=== PATIENT | female | born 1980 | race Caucasian/White ===

== ENCOUNTER 2021-05-19 08:41 | Day surgery (SDC) | payer MEDICARE ==
[2021-05-19] MEDS ORDERED: Depo-Medrol 40 MG/ML IM ONE (08:42)
[2021-05-19] MEDS ORDERED: Marcaine Mpf 0.5% Vial 30 Ml IJ ONE (08:42)
[2021-05-19] MEDS ORDERED: DIPRIVAN 200 MG/20 ML IV ONE (10:24)
[2021-05-19] MEDS ORDERED: Lactated Ringers 1,000 ML IV ONE (10:31)
--- NOTE | 2021-05-19 17:10 | XRAY ---
9 seconds of fluoroscopy was used in surgery for an intra-articular injection of the left shoulder.
--- NOTE | 2021-05-21 09:17 | XRAY ---
Indication: Left shoulder intra-articular injection. Intraoperative fluoroscopy was provided for 9 seconds. A single digital spot image submitted for interpretation demonstrates the needle tip projected over the upper medial aspect of the left humeral head. Some contrast has been injected for needle tip placement. Correlate with intraoperative findings/report.
== END 2021-05-19 10:51 | disposition home or self-care (01) ==
LOC: SDC-PAIN 08:41
PROVIDERS: ATTEND Psychiatry & Neurology Pain Medicine
DX: M19.012 Primary osteoarthritis, left shoulder (principal); M75.22 Bicipital tendinitis, left shoulder; Z79.899 Other long term (current) drug therapy
CPT/HCPCS: 20550; 20610; 73030; 77002; 82947; J1030; J2704; Q9966

== ENCOUNTER 2021-06-23 07:55 | Day surgery (SDC) | payer MEDICARE ==
[2021-06-23] MEDS ORDERED: Depo-Medrol 40 MG/ML IM ONE (07:56)
[2021-06-23] MEDS ORDERED: LIDOCAINE HCL 2% 100 MG/5 ML IJ ONE (07:56)
[2021-06-23] MEDS ORDERED: DIPRIVAN 200 MG/20 ML IV ONE (08:55)
[2021-06-23] MEDS ORDERED: Lactated Ringers 1,000 ML IV ONE (16:10)
--- NOTE | 2021-06-24 11:29 | XRAY ---
24 seconds fluoroscopy time in surgery for right T9-T12 MBB.
--- NOTE | 2021-06-26 22:29 | XRAY ---
Indication: Right T9-T12 MBB. Intraoperative fluoroscopy was provided for 24 seconds. A single digital spot image submitted for interpretation demonstrates posterior needle tips projected over the expected course of the right T9-T12 nerve roots. Correlate with intraoperative findings/report.
== END 2021-06-23 09:21 | disposition home or self-care (01) ==
LOC: SDC-PAIN 07:55
PROVIDERS: ATTEND Psychiatry & Neurology Pain Medicine
DX: M47.814 Spondylosis without myelopathy or radiculopathy, thoracic region (principal); E11.9 Type 2 diabetes mellitus without complications; Z79.899 Other long term (current) drug therapy
CPT/HCPCS: 64490; 64491; 64492; 72020; 77002; 82947; J1030; J2704

== ENCOUNTER 2021-09-29 08:53 | Day surgery (SDC) | payer MEDICARE ==
[2021-09-29] MEDS ORDERED: BUPIVACAINE 0.5% VIAL IJ ONE (08:54)
[2021-09-29] MEDS ORDERED: DIPRIVAN 200 MG/20 ML IV ONE (10:19)
[2021-09-29] MEDS ORDERED: Lactated Ringers 1,000 ML IV ONE (11:19)
--- NOTE | 2021-09-29 11:21 | XRAY ---
Indication: Right T8-T11 MBB. Intraoperative fluoroscopy provided for 17 seconds. Single digital spot image submitted for interpretation demonstrate posterior needle tips projecting over the expected right T8-T11 nerve roots. Correlate with intraoperative findings/report.
--- NOTE | 2021-09-29 11:23 | XRAY ---
17 seconds of fluoroscopy was used in surgery for a right T8-T11 MBB.
== END 2021-09-29 11:05 | disposition home or self-care (01) ==
LOC: SDC-PAIN 08:53
PROVIDERS: ATTEND Psychiatry & Neurology Pain Medicine
DX: M47.814 Spondylosis without myelopathy or radiculopathy, thoracic region (principal); E11.9 Type 2 diabetes mellitus without complications; I10 Essential (primary) hypertension; Z79.899 Other long term (current) drug therapy
CPT/HCPCS: 64490; 64491; 64492; 72020; 77002; 82947; J2704

== ENCOUNTER 2022-04-15 05:50 | Day surgery (SDC) | payer MEDICARE ==
[2022-04-15] MEDS ORDERED: Marcaine Mpf 0.5% Vial 30 Ml IV ONE (05:51)
[2022-04-15] MEDS ORDERED: CEFAZOLIN 2 GM-D5W BAG** 2 GM/50 ML ML IV SCH (06:00)
[2022-04-15] MEDS ORDERED: Lactated Ringers 1,000 ML IV SCH (06:00)
[2022-04-15] MEDS ORDERED: SUBLIMAZE 100 MCG/2 ML ONE ×2 (06:46→07:57)
[2022-04-15] MEDS ORDERED: DIPRIVAN 200 MG/20 ML IV ONE (06:46)
[2022-04-15] MEDS ORDERED: Versed 2 MG/2 ML Injection ONE (06:46)
[2022-04-15] MEDS ORDERED: XYLOCAINE 1% HCL 20 ML MDV ONE (06:47)
[2022-04-15] MEDS ORDERED: PHENYLEPHRINE HCL ONE (07:53)
[2022-04-15] MEDS ORDERED: TORAdol 30 mg Injection ONE (08:49)
[2022-04-15] MEDS ORDERED: Hydromorphone 1 mg/ml Injection ONE (09:03)
[2022-04-15] MEDS ORDERED: NORCO 7.5/325 MG TAB PO PRN (09:48)
[2022-04-15] MEDS ORDERED: NORCO 7.5/325 MG TAB ONE (10:00)
[2022-04-15] MEDS ORDERED: ENALAPRILAT 2.5 MG INJECTION IV ONE (10:00)
--- NOTE | 2022-04-15 10:47 | OP ---
SURGERY DATE/TIME: 04/15/2022 0720 PREOPERATIVE DIAGNOSES: 1) Left foot pain. 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 POSTOPERATIVE DIAGNOSES: 1) Left foot pain. 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 PROCEDURE: Resection of sural nerve and burial into soleus muscle belly. SURGEON: Gumaro Bran DPM. NEUROLOGY PROFESSOR: None. ANESTHESIA: General plus a postoperative block of 20 cc of 1:1 mixture of 1% lidocaine plain and 0.5% bupivacaine plain along the incisions. HEMOSTASIS: Thigh tourniquet set to 350 mm of Mercury for 45 minutes. ESTIMATED BLOOD LOSS: Less than 5 cc. MATERIALS: 4-0 Monocryl, 3-0 Nylon. INJECTABLES: 20 cc of 1:1 mixture of 1% lidocaine plain and 0.5% bupivacaine plain injected in incisional block-type fashion. 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 The patient did have an open fracture of the fifth metatarsal head that healed with some concern for osteomyelitis. However, this resolved without complication and the wound healed. Following this, the patient did have some compression injury to the sural nerve with a positive Tinel's to this nerve distribution. The patient was sent for EMG which was demonstrating a sural nerve compression and abnormal nerve sensation. These two in combination with one another the patient was discussed the potential options for surgical selection. The patient was not interested in having an extenuated scar and the possibility of the sural nerve becoming compressed again if we were to perform a neurolysis and decompression and opted for the sural nerve resection and burial into the soleus muscle. She understands that following the procedure she will have numbness to the lateral aspect of her left leg. The possibilities and complications of a sural nerve stump neuroma is a possibility which was discussed. However, everything will be done to prevent this possibility. It is with that the patient understands all risks, complications and benefits of the procedure including but not limited to delayed skin healing, nonskin healing, possibility of failure of surgical intervention and need for surgical intervention at a later date. Once again, stump neuroma is a possible complication of this procedure which was discussed in depth and everything that we would do in order to prevent this from being a possibility. It is with that we decided to proceed. DESCRIPTION OF PROCEDURE AND FINDINGS: The patient is brought into the OR and placed on the OR table in the supine position. At this time, the patient was administered general anesthesia and sedated. The patient was positioned in a lazy lateral position exposing the lateral aspect of the left lower extremity. At this time, a well-padded thigh tourniquet was applied to the patient's left thigh and then set to 350 mm of Mercury. The left lower extremity is prepped and draped in the typical sterile fashion and lowered onto the surgical field. At this time marking is made preoperatively. We remeasured once again 9 cm from the calcaneal tuber, 1 cm proximal to the moccasin line and a separate incision made 1 cm posterior border of the distal aspect of the fibula. Another line was made just 10 cm proximal to this along the course of the typical sural nerve course. At this time decision was made at the plantar aspect of the left terminal end of the sural nerve which was identified utilizing a combination of blunt and sharp dissection. A Van Etten was introduced in between the nerve and the remaining soft tissue. An incision was made at the site just posterior to the fibula where once again the fibula was identified under blunt and sharp dissection this was retracted out and held in place with a mini-Decker. Finally the third site was identified at the distal aspect with an incision 2 cm in length being careful not to damage any neurovascular structures utilizing a combination of blunt and sharp dissection. Once all three of the sites were identified, the distal aspect of the sural nerve was resected this was carefully pulled through the incision up to the most proximal incision. Double crush was performed at its most proximal extent and cauterization of the distal tip of the nerve was performed. At this time a 2-0 PDS was introduced to the cauterized end of the tendon and a Luis A needle was utilized to pull the nerve through the soleus muscle belly under direct visualization. Following this, all incision sites were flushed with copious amounts of sterile saline. The incisions were coapted utilizing 4-0 Monocryl in a subcutaneous-type fashion simple interrupted and buried. Following this, 3-0 Nylon was utilized to coapt the skin edges in a horizontal mattress-type fashion. The patient then was cleansed and dressed with a dressing consisting of Betadine, Adaptic, 4x4, Kerlix and NAMAN. The patient was provided a CAM boot postoperatively. The patient was then returned to the postoperative anesthesia care unit with vital signs stable and vascular status intact. The patient handled the procedure as well as the anesthesia without complication. Postoperative orders as indicated in the patient's discharge chart.
[2022-04-15 11:07] VITALS: PULSE 100; O2SAT 98
[2022-04-15 11:11] VITALS: BP 135/101
== END 2022-04-15 10:52 | disposition home or self-care (01) ==
LOC: SDC 05:50
PROVIDERS: ATTEND Podiatrist Foot & Ankle Surgery
DX: G57.82 Other specified mononeuropathies of left lower limb (principal); M79.672 Pain in left foot; E11.9 Type 2 diabetes mellitus without complications
CPT/HCPCS: 82947; J0690; J1170; J1885; J2250; J2370; J2704; J3010; A9270-GY

== ENCOUNTER 2022-07-06 09:44 | Day surgery (SDC) | payer MEDICARE ==
[2022-07-06] MEDS ORDERED: Depo-Medrol 40 MG/ML IM ONE (09:45)
[2022-07-06] MEDS ORDERED: Marcaine Mpf 0.5% Vial 30 Ml IJ ONE (09:45)
[2022-07-06] MEDS ORDERED: XYLOCAINE-MPF 1% 5ML SDV IJ ONE (09:45)
[2022-07-06] MEDS ORDERED: DIPRIVAN 200 MG/20 ML IV ONE (11:57)
--- NOTE | 2022-07-06 13:20 | XRAY ---
Indication: Right T8-T11 RFA. Intraoperative fluoroscopy provided for 21 seconds. Single digital spot image submitted for interpretation demonstrates posterior needle tips projecting over the expected right T8-T11 nerve roots. Correlate with intraoperative findings/report.
--- NOTE | 2022-07-06 13:23 | XRAY ---
21 seconds fluoroscopy time in surgery for right T8-T11 RFA.
[2022-07-06] MEDS ORDERED: Lactated Ringers 1,000 ML IV ONE (14:21)
== END 2022-07-06 12:30 | disposition home or self-care (01) ==
LOC: SDC-PAIN 09:44
PROVIDERS: ATTEND Psychiatry & Neurology Pain Medicine
DX: M47.816 Spondylosis without myelopathy or radiculopathy, lumbar region (principal); E11.9 Type 2 diabetes mellitus without complications; Z79.899 Other long term (current) drug therapy
CPT/HCPCS: 01939; 64633; 64634; 72072; 77002; 82947; J1030; J2704

== ENCOUNTER 2022-12-14 09:32 | Day surgery (SDC) | payer MEDICARE ==
[2022-12-14] MEDS ORDERED: Sensorcaine 0.25% 10 ML IJ ONE (09:33)
[2022-12-14] MEDS ORDERED: LIDOCAINE HCL 1% 50 MG/5 ML VL PF IJ ONE (09:33)
[2022-12-14] MEDS ORDERED: DIPRIVAN 200 MG/20 ML IV ONE (11:11)
--- NOTE | 2022-12-14 12:02 | XRAY ---
Indication: Left lumbar sympathetic nerve block. Intraoperative fluoroscopy provided for 49 seconds. 5 digital spot images submitted for interpretation demonstrates left posterior needle tip projecting just anterior to L2 vertebral body. Small amount of contrast injected for needle tip placement. Correlate with intraoperative findings/report.
[2022-12-14] MEDS ORDERED: Lactated Ringers 1,000 ML IV ONE (12:09)
--- NOTE | 2022-12-14 12:20 | XRAY ---
49 seconds of fluoroscopy was used in surgery for a left lumbar sympathetic nerve block.
== END 2022-12-14 11:50 | disposition home or self-care (01) ==
LOC: SDC-PAIN 09:32
PROVIDERS: ATTEND Psychiatry & Neurology Pain Medicine
DX: G90.522 Complex regional pain syndrome I of left lower limb (principal); E11.9 Type 2 diabetes mellitus without complications; Z79.899 Other long term (current) drug therapy
CPT/HCPCS: 64520; 72100; 77002; 82947; J2001; J2704; Q9966

== ENCOUNTER 2022-12-28 09:29 | Day surgery (SDC) | payer MEDICARE ==
[2022-12-28] MEDS ORDERED: LIDOCAINE HCL 1% 50 MG/5 ML VL PF IJ ONE (09:30)
[2022-12-28] MEDS ORDERED: Sensorcaine 0.25% 10 ML IJ ONE (09:30)
[2022-12-28] MEDS ORDERED: DIPRIVAN 200 MG/20 ML IV ONE (10:55)
--- NOTE | 2022-12-28 12:20 | XRAY ---
Indication: Left lumbar sympathetic nerve block. Intraoperative fluoroscopy provided for 49 seconds. 5 digital spot image submitted for interpretation demonstrates left posterior needle tip projecting just anterior to L2 vertebral body. Small amount of contrast injected for needle tip placement. Correlate with intraoperative findings/report.
--- NOTE | 2022-12-28 12:45 | XRAY ---
49 seconds of fluoroscopy was used in surgery for a left lumbar sympathetic nerve block.
[2022-12-28] MEDS ORDERED: Lactated Ringers 1,000 ML IV ONE (13:17)
== END 2022-12-28 11:30 | disposition home or self-care (01) ==
LOC: SDC-PAIN 09:29
PROVIDERS: ATTEND Psychiatry & Neurology Pain Medicine
DX: G90.522 Complex regional pain syndrome I of left lower limb (principal); E11.9 Type 2 diabetes mellitus without complications; Z79.899 Other long term (current) drug therapy
CPT/HCPCS: 64520; 72100; 77002; 82947; J2001; J2704; Q9966

== ENCOUNTER 2023-07-05 09:01 | Day surgery (SDC) | payer MEDICARE ==
[2023-07-05] MEDS ORDERED: Sensorcaine 0.25% 10 ML IJ ONE (09:02)
[2023-07-05] MEDS ORDERED: LIDOCAINE HCL 1% 50 MG/5 ML VL PF IJ ONE (09:02)
[2023-07-05] MEDS ORDERED: DIPRIVAN 200 MG/20 ML IV ONE (10:18)
[2023-07-05] MEDS ORDERED: Versed 2 MG/2 ML Injection ONE (10:19)
[2023-07-05] MEDS ORDERED: Lactated Ringers 1,000 ML IV ONE (11:17)
--- NOTE | 2023-07-05 12:10 | XRAY ---
Indication: Left lumbar sympathetic nerve block. Intraoperative fluoroscopy provided for 51 seconds. 7 digital spot image submitted for interpretation demonstrates left posterior needle tip projecting anterior to L2-L3 interspace. Small amount of contrast injected for needle tip placement. Correlate with intraoperative findings/report.
--- NOTE | 2023-07-05 12:12 | XRAY ---
51 seconds of fluoroscopy was used in surgery for a left lumbar sympathetic nerve block.
== END 2023-07-05 10:55 | disposition home or self-care (01) ==
LOC: SDC-PAIN 09:01
PROVIDERS: ATTEND Psychiatry & Neurology Pain Medicine
DX: G90.522 Complex regional pain syndrome I of left lower limb (principal); E11.9 Type 2 diabetes mellitus without complications; Z79.899 Other long term (current) drug therapy
CPT/HCPCS: 64520; 72100; 77002; 77003; 82947; J2001; J2250; J2704; Q9966

== ENCOUNTER 2023-08-31 08:33 | Day surgery (SDC) | payer MEDICARE ==
[2023-08-31] MEDS ORDERED: XYLOCAINE-MPF 1% 5ML SDV IJ ONE (08:34)
[2023-08-31] MEDS ORDERED: Sensorcaine 0.25% 10 ML IJ ONE (08:34)
[2023-08-31] MEDS ORDERED: DIPRIVAN 200 MG/20 ML IV ONE (09:52)
--- NOTE | 2023-08-31 10:39 | XRAY ---
Indication: Left lumbar sympathetic nerve block. Intraoperative fluoroscopy provided for 21 seconds. 2 digital spot images submitted for interpretation demonstrates left posterior needle tip projecting just anterior to L2. Small amount of contrast injected for needle tip placement. Correlate with intraoperative findings/report.
[2023-08-31] MEDS ORDERED: Lactated Ringers 1,000 ML IV ONE (13:59)
--- NOTE | 2023-09-01 10:59 | XRAY ---
21 seconds of fluoroscopy was used in surgery on a left lumbar sympathetic nerve block.
== END 2023-08-31 10:25 | disposition left against medical advice (07) ==
LOC: SDC-PAIN 08:33
PROVIDERS: ATTEND Psychiatry & Neurology Pain Medicine
DX: G90.522 Complex regional pain syndrome I of left lower limb (principal); E11.9 Type 2 diabetes mellitus without complications
CPT/HCPCS: 64520; 72100; 77002; 82947; J2704; Q9966

== ENCOUNTER 2024-11-06 07:33 | Day surgery (SDC) | payer MEDICARE ==
[2024-11-06] MEDS ORDERED: Sensorcaine 0.25% 10 ML IJ ONE (07:34)
[2024-11-06] MEDS ORDERED: LIDOCAINE HCL 1% AMPUL 5 ML IJ ONE (07:34)
[2024-11-06] MEDS ORDERED: propofoL IV ONE (09:20)
[2024-11-06] MEDS ORDERED: Xylocaine-Mpf 2% 5 Ml Vial ONE (09:22)
[2024-11-06] MEDS ORDERED: Sodium Chloride 0.9% 1000 ML 1,000 ML ONE (09:42)
--- NOTE | 2024-11-06 11:26 | XRAY ---
Indication: Left lumbar sympathetic nerve block. Intraoperative fluoroscopy provided for 36 seconds. 7 digital spot image submitted for interpretation demonstrates left posterior needle tip projecting just anterior to inferior L2 vertebral body. Small amount of contrast injected for needle tip placement. Correlate with intraoperative findings/report.
--- NOTE | 2024-11-06 12:02 | XRAY ---
36 seconds of fluoroscopy was used in surgery for a left lumbar sympathetic nerve block.
== END 2024-11-06 10:11 | disposition home or self-care (01) ==
LOC: SDC-PAIN 07:33
PROVIDERS: ATTEND Psychiatry & Neurology Pain Medicine
DX: G90.522 Complex regional pain syndrome I of left lower limb (principal); E11.9 Type 2 diabetes mellitus without complications
CPT/HCPCS: 72100; 77002; 82947; J2704